=== PATIENT | female | born 1995 | race Caucasian/White ===

== ENCOUNTER → 2018-05-16 | Outpatient (CLI) | payer OTHER ==
--- NOTE | 2018-05-16 16:48 | KCIC ---
MR of the right wrist Indication: Right wrist pain for 3 months. Comparison: None are available Technique: Standard multiplanar sequences are obtained. FINDINGS: Artifact: No significant image degradation Triangular fibrocartilage: Intact Distal radioulnar alignment: Intact Extensor carpi ulnaris tendon: Intact, no significant dislocation. Other extensor compartments: Intact Flexor tendons: Intact Median nerve: Unremarkable Scapholunate ligament: No evidence of tear Lunotriquetral ligament: No evidence of a tear. Carpal bone alignment: Within normal limits. Fluid: No significant effusion. Joints: No advanced DJD. Bones: No lesion or acute fracture Soft tissues: There is some minimal cystic changes anterior to the radioscaphoid joints. This has a elongated linear and irregular morphology. IMPRESSION: 1. Small ganglion cyst anterior to the radioscaphoid joint. 2. No other significant abnormality. Electronically signed by: Geovanni Curtis MD (05/16/2018 4:44 PM) [id number]
== END | disposition home or self-care (01) ==
LOC: EDSEX 15:24 → KCIC MRI 15:24
PROVIDERS: ATTEND Orthopaedic Surgery
DX: M67.431 Ganglion, right wrist (principal)
CPT/HCPCS: 73221